=== PATIENT | female | born 1970 | race Native Hawaiian/Other Pacific Islander ===

== ENCOUNTER 2016-06-18 12:56 | Outpatient (CLI) | payer OTHER ==
[~2016-06-18 12:56] MED LIST: ACET-689 PO; DICLOFEN POT50 MG PO; NEXIUM40 M1 PO; TRAM50TA PO
== END 2016-06-18 19:29 | disposition home or self-care (01) ==
LOC: MAMMO 12:56
DX: Z12.31 Encounter for screening mammogram for malignant neoplasm of breast (principal)
CPT/HCPCS: G0202-TC

== ENCOUNTER 2016-11-23 07:44 | Outpatient (CLI) | payer OTHER | END 2016-11-23 10:00 | disposition home or self-care (01) | LOC: MRI 07:44 | DX: M47.16 Other spondylosis with myelopathy, lumbar region (principal) ==

== ENCOUNTER 2017-01-28 14:55 | Outpatient (CLI) | payer OTHER | END 2017-01-28 15:55 | disposition home or self-care (01) | LOC: RAD 14:55 | DX: M25.551 Pain in right hip (principal) ==

== ENCOUNTER 2017-02-26 11:48 | Outpatient (CLI) | payer OTHER | END 2017-02-26 21:20 | disposition home or self-care (01) | LOC: RAD 11:48 | DX: R05 Cough (principal) ==

== ENCOUNTER 2017-08-07 10:31 | Outpatient (CLI) | payer OTHER | END 2017-08-07 19:27 | disposition home or self-care (01) | LOC: RAD 10:31 | DX: M46.1 Sacroiliitis, not elsewhere classified (principal) ==

== ENCOUNTER 2017-10-22 13:39 | Outpatient (CLI) | payer OTHER | END 2017-10-22 23:55 | disposition home or self-care (01) | LOC: MRI 13:39 | DX: M51.16 Intervertebral disc disorders with radiculopathy, lumbar region (principal) ==

== ENCOUNTER 2017-12-12 16:35 | Outpatient (CLI) | payer OTHER ==
[2017-12-12 17:09] LABS: POTASSIUM 3.9 mmol/L (3.6-5.2)
[2017-12-12 17:14] LABS: PLATELET COUNT 274 K/uL (152-353)
[2017-12-12 17:37] LABS: PARTIAL THROMBOPLASTIN TIME 25.6 SECONDS (24.5-33.6)
== END 2017-12-12 20:11 | disposition home or self-care (01) ==
LOC: LABW 16:35 → RESP 16:35 → LABW 20:11
PROVIDERS: Neurological Surgery
DX: M41.86 Other forms of scoliosis, lumbar region (principal); M43.16 Spondylolisthesis, lumbar region
CPT/HCPCS: 36415; 80048; 81000; 85027; 85610; 85730; 93005

== ENCOUNTER 2018-01-30 11:06 | Outpatient (CLI) | payer OTHER | END 2018-01-30 23:40 | disposition home or self-care (01) | LOC: LABW 11:06 | DX: R53.83 Other fatigue (principal) | CPT/HCPCS: 36415; 82670; 83001; 84402; 84403; 84436; 84481; 86376 ==

== ENCOUNTER 2018-02-17 09:14 | Outpatient (CLI) | payer OTHER | END 2018-02-17 20:02 | disposition home or self-care (01) | LOC: RAD 09:14 | DX: M41.86 Other forms of scoliosis, lumbar region (principal) ==

== ENCOUNTER 2018-08-03 11:34 | Outpatient (CLI) | payer OTHER | END 2018-08-03 21:38 | disposition home or self-care (01) | LOC: RAD 11:34 | DX: M47.26 Other spondylosis with radiculopathy, lumbar region (principal) ==

== ENCOUNTER 2018-11-12 07:24 | Outpatient (CLI) | payer OTHER ==
[2018-11-12 07:45] LABS: PLATELET COUNT 279 K/uL (152-353)
[2018-11-12 08:27] LABS: POTASSIUM 4.3 mmol/L (3.6-5.2)
== END 2018-11-12 20:07 | disposition home or self-care (01) ==
LOC: LABW 07:24
PROVIDERS: Nurse Practitioner Family
DX: R53.83 Other fatigue (principal); R06.02 Shortness of breath; K21.9 Gastro-esophageal reflux disease without esophagitis
CPT/HCPCS: 36415; 80053; 81000; 82306; 82607; 83735; 84439; 84443; 85027

== ENCOUNTER 2019-08-10 10:33 | Outpatient (CLI) | payer OTHER ==
[2019-08-10 10:49] LABS: PLATELET COUNT 267 K/uL (152-353)
[2019-08-10 11:19] LABS: POTASSIUM 4.5 mmol/L (3.6-5.2)
== END 2019-08-10 22:05 | disposition home or self-care (01) ==
LOC: LABW 10:33
PROVIDERS: Nurse Practitioner Family
DX: E66.9 Obesity, unspecified (principal); R53.83 Other fatigue; E55.9 Vitamin D deficiency, unspecified; Z13.1 Encounter for screening for diabetes mellitus
CPT/HCPCS: 36415; 80053; 80061; 82306; 82607; 83036; 84443; 85027

== ENCOUNTER 2019-08-17 07:44 | Outpatient (CLI) | payer OTHER | END 2019-08-17 19:20 | disposition home or self-care (01) | LOC: CT 07:44 | DX: R06.00 Dyspnea, unspecified (principal) | CPT/HCPCS: Q9963 ==

== ENCOUNTER 2020-09-28 07:34 | Outpatient (CLI) | payer OTHER ==
[2020-09-28 07:54] LABS: PLATELET COUNT 271 K/uL (152-353)
[2020-09-28 08:15] LABS: POTASSIUM 4.1 mmol/L (3.6-5.2)
== END 2020-09-28 12:02 | disposition home or self-care (01) ==
LOC: LABW 07:34
PROVIDERS: ATTEND Nurse Practitioner Family
DX: R53.83 Other fatigue (principal); E66.9 Obesity, unspecified; Z13.1 Encounter for screening for diabetes mellitus; E55.9 Vitamin D deficiency, unspecified; E78.2 Mixed hyperlipidemia
CPT/HCPCS: 36415; 80053; 80061; 82306; 82607; 82670; 83001; 83036; 84402; 84403; 84436; 84443; 84481; 85027; 86376

== ENCOUNTER 2021-05-19 09:25 | Outpatient (CLI) | payer OTHER | END 2021-05-19 19:52 | disposition home or self-care (01) | LOC: CT 09:25 | PROVIDERS: ATTEND Nurse Practitioner Family | DX: M51.26 Other intervertebral disc displacement, lumbar region (principal) ==

== ENCOUNTER 2021-11-26 09:47 | Outpatient (CLI) | payer OTHER ==
[2021-11-26 10:12] LABS: PLATELET COUNT 243 K/uL (152-353)
== END 2021-11-26 19:08 | disposition home or self-care (01) ==
LOC: LABW 09:47
PROVIDERS: ATTEND Family Medicine
DX: N39.0 Urinary tract infection, site not specified (principal); R30.0 Dysuria
CPT/HCPCS: 36415; 81002; 85027

== ENCOUNTER 2022-04-07 08:03 | Outpatient (CLI) | payer OTHER ==
[2022-04-07 09:23] LABS: POTASSIUM 4.2 mmol/L (3.6-5.2)
== END 2022-04-07 18:55 | disposition home or self-care (01) ==
LOC: LABW 08:03
PROVIDERS: ATTEND Nurse Practitioner Primary Care
DX: R53.83 Other fatigue (principal); R68.82 Decreased libido; M25.50 Pain in unspecified joint; E55.9 Vitamin D deficiency, unspecified
CPT/HCPCS: 36415; 80053; 82306; 82607; 82670; 83001; 83002; 84146; 84402; 84439; 84443; 84480; 84550; 86038; 86060; 86140; 86376; 86431

== ENCOUNTER 2022-05-11 13:04 | Outpatient (CLI) | payer OTHER | END 2022-05-11 19:18 | disposition home or self-care (01) | LOC: LABW 13:04 | PROVIDERS: ATTEND Family Medicine | DX: R68.82 Decreased libido (principal) | CPT/HCPCS: 36415; 84402; 84403 ==

== ENCOUNTER 2022-07-18 08:25 | Outpatient (CLI) | payer OTHER | END 2022-07-18 19:00 | disposition home or self-care (01) | LOC: LABW 08:25 | PROVIDERS: ATTEND Family Medicine | DX: R68.89 Other general symptoms and signs (principal); Z79.890 Hormone replacement therapy | CPT/HCPCS: 36415; 82670; 83001; 84402; 84403; 84436; 84481 ==

== ENCOUNTER 2022-11-13 07:57 | Outpatient (CLI) | payer OTHER | END 2022-11-13 20:42 | disposition home or self-care (01) | LOC: MRI 07:57 | PROVIDERS: ATTEND Nurse Practitioner Family | DX: Z12.31 Encounter for screening mammogram for malignant neoplasm of breast (principal); Z13.820 Encounter for screening for osteoporosis; M54.17 Radiculopathy, lumbosacral region ==